=== PATIENT | male | born 1940 | race Caucasian/White ===

== ENCOUNTER 2017-06-17 18:39 | Inpatient (IN) ==
--- NOTE | 2017-06-17 19:10 | Emergency Department Note ---
Disposition Clinical Impression: Bladder stone, UTI (urinary tract infection) Disposition: Admitted As Inpatient Condition: Fair General Adult HPI - General Chief complaint: ED Abdominal Pain Stated complaint: Abd pain Time Seen by Provider: 06/17/17 18:51 Source: patient Limitations: no limitations Nursing Notes Reviewed: Yes Vital Signs Reviewed: Yes - History of Present Illness Pain Scale: 5 - Related Data Home Medications Medication Instructions Recorded Confirmed Aspirin Enteric Coated [Aspirin EC] 81 mg PO DAILY 03/01/15 06/17/17 Meloxicam [Mobic] 7.5 mg PO DAILY 03/01/15 03/01/15 Metoprolol XL (24 HR) Succ [Toprol 12.5 mg PO HS 03/01/15 06/17/17 Xl] Propafenone HCl [Propafenone HCl 225 mg PO BID 03/01/15 06/17/17 ER] Tamsulosin HCl 0.4 mg PO DAILY 03/01/15 03/01/15 Previous Rx's Medication Instructions Recorded Lisinopril [Zestril] 20 mg PO DAILY #30 tablet 01/17/15 Docusate [Colace] 100 mg PO BID #60 capsule 03/02/15 HYDROcodone/Acet 5/325 mg [[place] 1 tab PO Q4H PRN #20 tablet 03/02/15 5-325 mg] Allergies Allergy/AdvReac Type Severity Reaction Status Date / Time Latex, Natural Rubber Allergy Hives Verified 01/17/15 00:20 Past Medical History - Past Medical History Medical history: Reports: COPD, GERD, hypertension, other Surgical history: Reports: other Psychiatric history: Reports: no psych history - Social History Smoking Status: Never smoker Smokeless Tobacco Status: No Alcohol use: Reports: none Drug use: Reports: none Physical Exam - General Limitations: no limitations General appearance: alert Course - Reevaluation(s) Reevaluation #1: I examined this patient and my medical decision-making was reviewed with Dr. Malhotra. I agree with the documented findings, disposition and treatment plan. This is a 76 year-old male with history of HTN, COPD, and BPH who presents with suprapubic discomfort. He says he's had bladder discomfort since February, when he was diagnosed with a UTI that did not respond to several rounds of antibiotics. He underwent cystoscopy [address] Chaidez 2 days ago and was diagnosed with a 2x3 cm bladder stone. Lithotripsy is planned for later this month. Patient presents to the ED with worsening bladder pain and subjective fever. He denies any associated nausea, vomiting, visible change in urine, or inability to urinate. On exam, patient has a very slight temperature elevation. Abdomen is benign. The main concern, in addition to the pain itself, is cystitis and the potential for a more serious systemic infection. We will check UA, CBC, and CMP and will discuss the case with the urologist food production manager. Time: 19:05 Vital Signs Temperature 99.5 F 06/17/17 18:40 Pulse Rate 82 06/17/17 18:40 Respiratory Rate 18 06/17/17 18:40 Blood Pressure 135/79 06/17/17 18:40 O2 Sat by Pulse Oximetry 96 06/17/17 18:40 Temperature 98.7 F 06/17/17 22:31 Pulse Rate 81 06/17/17 22:31 Respiratory Rate 15 06/17/17 22:31 Blood Pressure 146/80 06/17/17 22:31 O2 Sat by Pulse Oximetry 97 06/17/17 23:01 Oxygen Delivery Oxygen Delivery Nasal Cannula Medical Decision Making - Lab Data Lab results reviewed: Yes I reviewed the patient's lab results. Result diagrams: 06/17/17 19:15 06/17/17 19:15 Lab Results 06/17/17 06/17/17 06/17/17 Range/Units 19:15 19:15 19:43 WBC 15.4 H (4.3-11.1) K/mcL RBC 4.72 (4.19-5.50) M/mcL Hgb 14.1 (12.9-16.9) g/dL Hct 41.9 (37.5-50.1) % MCV 88.8 (83.0-100.0) fL MCH 29.9 (28.0-33.3) pg MCHC 33.7 (31.6-35.5) g/dL RDW 13.6 (11.5-14.5) % Plt Count 120 L (140-400) K/mcL MPV 11.6 (9.4-12.4) fL Immature Gran % 0.5 (0-4) % Seg Neutrophils % 83.8 % Lymphocytes % 6.6 % Monocytes % 8.6 % Eosinophils % 0.3 % Basophils % 0.2 % Neutrophils # 12.9 H (1.6-8.9) K/mcL Lymphocytes # 1.0 (0.6-4.6) K/mcL Monocytes # 1.3 (0.0-1.3) K/mcL Eosinophils # 0.1 (0.0-0.6) K/mcL Basophils # 0.0 (0.0-0.2) K/mcL Sodium 138 (136-145) mEq/L Potassium 3.6 (3.5-5.1) mEq/L Chloride 108 H (98-107) mEq/L Carbon Dioxide 25 (23-29) mEq/L BUN 29 H (8-23) mg/dL Creatinine 1.06 (0.70-1.30) mg/dL Est GFR ( Amer) > 60 (> 60) Est GFR (Non-Af Amer) > 60 (> 60) BUN/Creatinine Ratio 27 H (6-26) Glucose 103 (70-105) mg/dL Calculated Osmolality 292 (280-300) Calcium 9.0 (8.6-10.3) mg/dL Urine Color Yellow (Yellow) Urine Clarity Turbid A (Clear) Urine pH 6.0 (5.0-8.0) pH Units Ur Specific [place] 1.026 H (1.010-1.025) Urine Protein 100 H (Neg-Trace) mg/dL Urine Glucose (UA) Normal (Normal) mg/dL Urine Ketones Trace H (Negative) mg/dL Urine Blood Large H (Negative) Urine Nitrite Positive A (Negative) Urine Bilirubin Negative (Negative) Urine Urobilinogen Normal (Normal) mg/dL Ur Leukocyte Esterase Large H (Negative) Urine Microscopic RBC 50-100 H (0-3) per hpf Urine Microscopic WBC TNTC H (0-3) per hpf Ur Squamous Epith Cells Moderate H (None-Few) per lpf Urine Bacteria Many H (None-Few) per hpf Hyaline Casts Few (None-Few) per lpf Ur Culture Indicated? YES A (NO)
--- NOTE | 2017-06-17 19:11 | Emergency Department Note ---
Disposition Clinical Impression: Bladder stone UTI (urinary tract infection) Qualifiers: Urinary tract infection type: site unspecified Hematuria presence: with hematuria Qualified Code(s): N39.0 - Urinary tract infection, site not specified ; R31.9 - Hematuria, unspecified; R31.9 - Hematuria, unspecified Disposition: Admitted As Inpatient Condition: Fair Referrals: Milton Almodovar MD [Primary Care Provider] - Forms: ED Satisfaction Letter, Work/School Release Time of Disposition: 21:31 General Adult HPI - General Chief complaint: ED Abdominal Pain Stated complaint: Abd pain Time Seen by Provider: 06/17/17 18:51 Source: patient Mode of arrival: ambulatory Limitations: no limitations Nursing Notes Reviewed: Yes Vital Signs Reviewed: Yes - History of Present Illness HPI Narrative: Patient is a 76-year-old male that presents to the emergency department for a known bladder stone. He states that he was told on Sunday by one of the urologists that it measured 2-3 cm. States that he has been trying to take ibuprofen without any relief. States that he is scheduled for possible lithotripsy on July 06. However the patient states that he does not feel that he can wait this long due to having a significant amount of pain. Patient also reports that he felt like he had a fever today. Patient did not check his temperature with a thermometer so is unable to state how high his fever was. Patient states that he has pain when he urinates. Patient denies any abdominal pain. States that nothing seems to really make his pain any better or worse. Pain Scale: 5 - Related Data Home Medications Medication Instructions Recorded Confirmed Aspirin Enteric Coated [Aspirin EC] 81 mg PO DAILY 03/01/15 03/01/15 Meloxicam [Mobic] 7.5 mg PO DAILY 03/01/15 03/01/15 Metoprolol XL (24 HR) Succ [Toprol 25 mg PO HS 03/01/15 03/01/15 Xl] Propafenone HCl [Propafenone HCl 225 mg PO BID 03/01/15 03/01/15 ER] Tamsulosin HCl 0.4 mg PO DAILY 03/01/15 03/01/15 Previous Rx's Medication Instructions Recorded Lisinopril [Zestril] 20 mg PO DAILY #30 tablet 01/17/15 Docusate [Colace] 100 mg PO BID #60 capsule 03/02/15 HYDROcodone/Acet 5/325 mg [[place] 1 tab PO Q4H PRN #20 tablet 03/02/15 5-325 mg] Allergies Allergy/AdvReac Type Severity Reaction Status Date / Time Latex, Natural Rubber Allergy Hives Verified 01/17/15 00:20 All systems ED: reviewed and negative except as stated. Constitutional: Reports: fever Cardiovascular: Denies: chest pain Respiratory: Denies: dyspnea Gastrointestinal: Denies: abdominal pain, nausea, vomiting Genitourinary: Reports: dysuria, frequency Past Medical History - Past Medical History Medical history: Reports: COPD, GERD, hypertension, other Surgical history: Reports: other Psychiatric history: Reports: no psych history - Social History Smoking Status: Never smoker Smokeless Tobacco Status: No Alcohol use: Reports: none Drug use: Reports: none Physical Exam - General Limitations: no limitations General appearance: alert, in no apparent distress - Head Head exam: atraumatic, normocephalic - Eye Eye exam: Present: normal appearance, EOMI - Neck Neck exam: Present: normal inspection, full ROM, trachea midline - Respiratory Respiratory exam: Present: normal lung sounds bilaterally. Absent: respiratory distress, wheezes - Cardiovascular Cardiovascular exam: Present: regular rate, normal rhythm, normal heart sounds, +S1, +S2 - Abdominal Exam Abdominal exam: Present: soft, Non-Tender, normal bowel sounds - Back Exam Back exam: Present: normal inspection, full ROM. Absent: tenderness - Neurological Exam Neurological exam: Present: alert, oriented X3 - Psychiatric Psychiatric exam: Present: normal affect, normal mood - Skin Skin exam: Present: warm, dry, intact Course - Reevaluation(s) Reevaluation #1: I called and spoke with Dr. Logan the on-call urologist and he did not feel that there is anything urgent that needed to be done at this time but was in agreement with the patient being admitted to the medicine service with a urology consult. We will start this patient on antibiotics. He was in agreement that there is no further imaging that was necessary at this time. Time: 20:16 Vital Signs Temperature 99.5 F 06/17/17 18:40 Pulse Rate 82 06/17/17 18:40 Respiratory Rate 18 06/17/17 18:40 Blood Pressure 135/79 06/17/17 18:40 O2 Sat by Pulse Oximetry 96 06/17/17 18:40 Temperature 99.0 F 06/17/17 20:08 Pulse Rate 82 06/17/17 20:08 Respiratory Rate 20 06/17/17 20:08 Blood Pressure 126/70 06/17/17 20:08 O2 Sat by Pulse Oximetry 94 06/17/17 20:08 Oxygen Delivery Oxygen Delivery Nasal Cannula Medical Decision Making - MDM Narrative Medical decision making narrative: Due to the patient presenting with a known bladder stone and having significant pain and potential fever we will obtain a CBC, BMP and a urinalysis. Once these laboratory tests and been obtained we will contact urology for further recommendations. The patient is still able to pass small amounts of urine. The patient did request a Jackson catheter for convenience and not having to get up to go to the bathroom. A Jackson catheter was attempted however we were not able to obtain any urine through the catheter. A bedside bladder scan was performed and the patient had 280 mL of urine in his bladder at this time. I explained to the patient that sometimes when we a urinary tract infection is present thoroughly the sensation that they have to urinate. He was understanding of this and we will not attempt placing another Jackson catheter due to the patient still being able to pass small amounts of urine. The patient did have an elevated white count of 15.4 the patient's urinalysis showed nitrites, leukocyte esterase, blood and bacteria. We will start the patient on Rocephin here in the emergency department the patient will be admitted to the hospital. I called and spoke with the admitting hospitalist and she has accepted the patient to their service. The patient be admitted to the hospital this time for further evaluation and management. - Medical Records Medical records reviewed: Yes I reviewed the patient's medical records. - Lab Data Lab results reviewed: Yes I reviewed the patient's lab results. Result diagrams: 06/17/17 19:15 06/17/17 19:15 Lab Results 06/17/17 06/17/17 06/17/17 Range/Units 19:15 19:15 19:43 WBC 15.4 H (4.3-11.1) K/mcL RBC 4.72 (4.19-5.50) M/mcL Hgb 14.1 (12.9-16.9) g/dL Hct 41.9 (37.5-50.1) % MCV 88.8 (83.0-100.0) fL MCH 29.9 (28.0-33.3) pg MCHC 33.7 (31.6-35.5) g/dL RDW 13.6 (11.5-14.5) % Plt Count 120 L (140-400) K/mcL MPV 11.6 (9.4-12.4) fL Immature Gran % 0.5 (0-4) % Seg Neutrophils % 83.8 % Lymphocytes % 6.6 % Monocytes % 8.6 % Eosinophils % 0.3 % Basophils % 0.2 % Neutrophils # 12.9 H (1.6-8.9) K/mcL Lymphocytes # 1.0 (0.6-4.6) K/mcL Monocytes # 1.3 (0.0-1.3) K/mcL Eosinophils # 0.1 (0.0-0.6) K/mcL Basophils # 0.0 (0.0-0.2) K/mcL Sodium 138 (136-145) mEq/L Potassium 3.6 (3.5-5.1) mEq/L Chloride 108 H (98-107) mEq/L Carbon Dioxide 25 (23-29) mEq/L BUN 29 H (8-23) mg/dL Creatinine 1.06 (0.70-1.30) mg/dL Est GFR ( Amer) > 60 (> 60) Est GFR (Non-Af Amer) > 60 (> 60) BUN/Creatinine Ratio 27 H (6-26) Glucose 103 (70-105) mg/dL Calculated Osmolality 292 (280-300) Calcium 9.0 (8.6-10.3) mg/dL Urine Color Yellow (Yellow) Urine Clarity Turbid A (Clear) Urine pH 6.0 (5.0-8.0) pH Units Ur Specific [place] 1.026 H (1.010-1.025) Urine Protein 100 H (Neg-Trace) mg/dL Urine Glucose (UA) Normal (Normal) mg/dL Urine Ketones Trace H (Negative) mg/dL Urine Blood Large H (Negative) Urine Nitrite Positive A (Negative) Urine Bilirubin Negative (Negative) Urine Urobilinogen Normal (Normal) mg/dL Ur Leukocyte Esterase Large H (Negative) Urine Microscopic RBC 50-100 H (0-3) per hpf Urine Microscopic WBC TNTC H (0-3) per hpf Ur Squamous Epith Cells Moderate H (None-Few) per lpf Urine Bacteria Many H (None-Few) per hpf Hyaline Casts Few (None-Few) per lpf Ur Culture Indicated? YES A (NO)
[2017-06-17 19:25] LABS: Basophils % 0.2 %; Eosinophils # 0.1 K/mcL (0.0-0.6); Eosinophils % 0.3 %; Hematocrit 41.9 % (37.5-50.1); Hemoglobin 14.1 g/dL (12.9-16.9); Immature Granulocytes % 0.5 % (0-4); Lymphocytes % 6.6 %; Mean Corpuscular HGB Conc 33.7 g/dL (31.6-35.5); Mean Corpuscular Hemoglobin 29.9 pg (28.0-33.3); Mean Corpuscular Volume 88.8 fL (83.0-100.0); Mean Platelet Volume 11.6 fL (9.4-12.4); Monocytes # 1.3 K/mcL (0.0-1.3); Monocytes % 8.6 %; Neutrophils # 12.9 K/mcL (1.6-8.9); Platelet Count 120 K/mcL (140-400); Red Blood Count 4.72 M/mcL (4.19-5.50); Red Cell Distribution Width 13.6 % (11.5-14.5); Segmented Neutrophils % 83.8 %
[2017-06-17 19:49] LABS: BUN/Creatinine Ratio 27 (6-26); Blood Urea Nitrogen 29 mg/dL (8-23); Carbon Dioxide 25 mEq/L (23-29); Chloride 108 mEq/L (98-107); Glucose 103 mg/dL (70-105); Osmolality,Calculated 292 (280-300); Potassium 3.6 mEq/L (3.5-5.1); Sodium 138 mEq/L (136-145); eGFR For African Americans > 60 (> 60); eGFR For Non-African Americans > 60 (> 60)
[2017-06-17 19:58] LABS: Bilirubin,Urine Negative (Negative); Blood,Urine Large (Negative); Clarity,Urine Turbid (Clear); Color,Urine Yellow (Yellow); Glucose,Urine (UA) Normal (Normal); Ketones,Urine Trace mg/dL (Negative); Leukocyte Esterase,Urine Large (Negative); Nitrite,Urine Positive (Negative); Protein,Urine 100 mg/dL (Neg-Trace); Specific Gravity,Urine 1.026 (1.010-1.025); Urobilinogen,Urine Normal (Normal)
[2017-06-17 20:01] LABS: Bacteria,Urine Many per hpf (None-Few); Hyaline Casts,Urine Few per lpf (None-Few); RBC,Urine 50-100 per hpf (0-3); Squamous Epithelial Cell,Urine Moderate per lpf (None-Few); WBC,Urine TNTC per hpf (0-3)
[2017-06-17] MEDS ORDERED: cefTRIAXone 2,000 MG in Water for inj. (sterile) 20 ML 20 ML IVP ONE (20:16)
[2017-06-17] MEDS: Acetaminophen 325 MG TABLET PO PRN (23:19)
[2017-06-17] MEDS ORDERED: *HR* OxyCODONE Immed Rel 5 MG TABLET PO PRN (23:37)
[2017-06-17] MEDS ORDERED: Naloxone 0.4 MG/ML INJ IVP PRN (23:37)
--- NOTE | 2017-06-17 23:40 | Internal Med History&Physical ---
Date of Encounter: 06/17/17 Time of Encounter: 23:40 Internal Medicine - H&P: HPI Chief complaint: Pain on micturition Admitted From: Emergency Dept Plans for Post Hospital Care: Home History of present illness: Mr. Kim is a 76 year old male with h/o- recently diagnosed bladder stone, presents with c/o- painful urination. He was seen in Urology office 2 days ago and underwent cystoscopy with bladder stone finding, is scheduled for stone removal later this month. However patient started having significant pain on urination, coursing though his penis, associated with some hematuria, subjective fever and chills. No nausea, vomiting, suprapubic or abdominal pain, shortness of breath. Past Med Surg Social Fam HX - Past Medical History Source: patient Medical history: atrial fibrillation, COPD, GERD, hypertension, other Psychiatric history: no psych history - Past Surgical History Surgical History: prostatectomy, other - Social History Smoking Status: Former smoker Smokeless Tobacco Status: No Alcohol use: none Drug use: none Occupational status: retired Current living situation: Home, With Family Activity Level: Independent ambulation Recent Out of Country Travel Within the Last 8 Weeks: No Exposure or Possible Exposure to Illness During Travel: No - Family History Mother Living Status: Hx Family Cardiac Disorders: Yes Father Living Status: Hx Family Cardiac Disorders: Yes Internal Medicine - H&P: Meds Lisinopril [Zestril] 20 mg PO DAILY #30 tablet 01/17/15 [Rx] Aspirin Enteric Coated [Aspirin EC] 81 mg PO DAILY 03/01/15 [History] Meloxicam [Mobic] 7.5 mg PO DAILY 03/01/15 [History] Metoprolol XL (24 HR) Succ [Toprol Xl] 12.5 mg PO HS 03/01/15 [History] Propafenone HCl [Propafenone HCl ER] 225 mg PO BID 03/01/15 [History] Tamsulosin HCl 0.4 mg PO DAILY 03/01/15 [History] Docusate [Colace] 100 mg PO BID #60 capsule 03/02/15 [Rx] HYDROcodone/Acet 5/325 mg [[place] 5-325 mg] 1 tab PO Q4H PRN #20 tablet 03/02/15 [Rx] 3 Allergy/AdvReac Type Severity Reaction Status Date / Time Latex, Natural Rubber Allergy Hives Verified 12/06/15 00:20 All Systems PM: A 10-system review of systems was performed and is negative for pertinent findings except as documented above in the HPI. - Constitutional Constitutional: chills, fever(s) - EENT Eyes: no change in vision, no discharge, no pain, no photophobia Ears: no ear discharge, no ear pain, no tinnitus Nose, mouth and throat: no dysphagia, no nasal discharge, no neck pain, no sore throat - Cardiovascular Cardiovascular ROS IM: no chest pain, no diaphoresis, no dyspnea, no lightheadedness, no palpitations, no syncope - Respiratory Respiratory: no cough, no dyspnea, no wheezing, no excessive phlegm production - Gastrointestinal Gastrointestinal: no abdominal pain, no diarrhea, no hematemesis, no hematochezia, no melena, no nausea, no vomiting - Genitourinary Genitourinary ROS male: as per HPI, dysuria, genital pain, hematuria - Musculoskeletal Musculoskeletal ROS IM: no numbness, no tingling - Integumentary Integumentary IM: no rash, no unusual bruising - Neurological Neurological ROS: no confusion, no convulsions, no focal weakness, no numbness, no tingling, no tremor(s) - Hematologic/Lymphatic Hematologic/Lymphatic: no easy bruising - Constitutional Vitals: Temp Pulse Resp BP Pulse Ox 98.7 F 81 15 146/80 97 06/17/17 22:31 06/17/17 22:31 06/17/17 22:31 06/17/17 22:31 06/17/17 23:01 General appearance: Present: A&O X 3, answers questions appropriately - Respiratory Respiratory exam: Present: CTAB. Absent: accessory muscle use, rales, rhonchi, wheezes - Cardiovascular Cardiovascular exam: Present: RRR, +S1, +S2. Absent: diastolic murmur, gallop, rubs, systolic murmur - GI/Abdominal GI/Abdominal exam: Present: normal bowel sounds, soft, no peritoneal signs. Absent: distended, tenderness - Extremities Exam Extremities exam: Present: full ROM, warm, radial pulses palpable and symmetrical. Absent: calf tenderness, cyanotic, pedal edema - Neurological Exam Neurological exam: Present: CN II-XII intact, oriented X3, no focal deficits. Absent: pronater drift, facial droop, speech deficit - Skin Skin exam: Present: dry, intact Internal Med - H&P Results - Labs CBC & Chem 7: 06/17/17 19:15 06/17/17 19:15 - Assessment and plan (1) Bladder stone Current Visit: Yes Status: Acute Assessment and plan: Urology was consulted by ER, no further imaging at this time; full consult to follow; pain control with PRN TYlenol and Oxycodone; monitor urine output; Jackson catheterization was attempted in the ER, unsuccessful. (2) UTI (urinary tract infection) Current Visit: Yes Status: Acute Assessment and plan: UA suggestive of UTI; continue IV Rocephin and f/up urine cultures; Qualifiers: Urinary tract infection type: site unspecified Hematuria presence: with hematuria Qualified Code(s): N39.0 - Urinary tract infection, site not specified; R31.9 - Hematuria, unspecified; R31.9 - Hematuria, unspecified (3) COPD (chronic obstructive pulmonary disease) Current Visit: Yes Status: Chronic Assessment and plan: not in acute exacerbation; PRN Albuterol nebs; Qualifiers: COPD type: unspecified COPD Qualified Code(s): J44.9 - Chronic obstructive pulmonary disease, unspecified (4) Atrial fibrillation Current Visit: Yes Status: Chronic Assessment and plan: continue Rhythmol, beta inga and ASA for anticoagulation; he was taken off full anticoagulation by his Annual Campaign Manager; Qualifiers: Atrial fibrillation type: paroxysmal Qualified Code(s): I48.0 - Paroxysmal atrial fibrillation - Time Spent With Patient Total time spent is greater than 50% in coordination of care (as documented) at patient's floor/unit and/or counseling patient:
[2017-06-17] MEDS: Ringers Solution, Lactated 1,000 ML IVC SCH (23:50)
[2017-06-18 05:09] LABS: Basophils % 0.2 %; Eosinophils % 0.2 %; Hematocrit 41.6 % (37.5-50.1); Hemoglobin 13.7 g/dL (12.9-16.9); Immature Granulocytes % 0.7 % (0-4); Lymphocytes # 0.8 K/mcL (0.6-4.6); Lymphocytes % 6.1 %; Mean Corpuscular HGB Conc 32.9 g/dL (31.6-35.5); Mean Corpuscular Hemoglobin 29.5 pg (28.0-33.3); Mean Corpuscular Volume 89.7 fL (83.0-100.0); Monocytes # 1.3 K/mcL (0.0-1.3); Monocytes % 9.3 %; Neutrophils # 11.3 K/mcL (1.6-8.9); Platelet Count 113 K/mcL (140-400); Red Blood Count 4.64 M/mcL (4.19-5.50); Red Cell Distribution Width 13.7 % (11.5-14.5); Segmented Neutrophils % 83.5 %
[2017-06-18 05:21] LABS: BUN/Creatinine Ratio 27 (6-26); Blood Urea Nitrogen 28 mg/dL (8-23); Calcium 8.9 mg/dL (8.6-10.3); Carbon Dioxide 28 mEq/L (23-29); Chloride 107 mEq/L (98-107); Glucose 113 mg/dL (70-105); Osmolality,Calculated 294 (280-300); Potassium 3.8 mEq/L (3.5-5.1); Sodium 139 mEq/L (136-145); eGFR For African Americans > 60 (> 60); eGFR For Non-African Americans > 60 (> 60)
--- NOTE | 2017-06-18 06:59 | Urology - Consult Note ---
Date of Encounter: 06/18/17 Time of Encounter: 06:56 - Assessment and Plan (1) Bladder stone Current Visit: Yes Status: Acute Assessment and plan: Patient's bladder stone will ultimately require removal. No emergent need for removal at this time. We will discuss patient's care with Dr. Chaidez. Continue broad-spectrum antibiotics at this time. Patient states that he had bladder scan performed in the emergency department with a volume of 200 mL's. A catheter was attempted to be placed which was unsuccessful. No urgent need for catheter placement. (2) UTI (urinary tract infection) Current Visit: Yes Status: Acute Assessment and plan: Patient with nitrite positive urinalysis upon arrival to the hospital. Recommend to continue broad-spectrum antibiotics until cultures return. Patient will likely need to remain on antibiotics until surgical procedure is performed. This does not have to be IV antibiotics if cultures return a by mouth sensitive antibiotic. Qualifiers: Urinary tract infection type: site unspecified Hematuria presence: with hematuria Qualified Code(s): N39.0 - Urinary tract infection, site not specified; R31.9 - Hematuria, unspecified; R31.9 - Hematuria, unspecified (3) Feeling of incomplete bladder emptying Current Visit: Yes Status: Acute Assessment and plan: Patient had bladder scan emergency department which did not show obvious retention. Given that the patient's symptoms have only worsened in the past 2 or 3 days I do not recommend a catheter at this time. We will reassess later today or tomorrow for possible catheter need. I voiced to the patient that my expectation is that his voiding symptoms will improve with the antibiotic treatment. Urology CN:[facility] Consult date: 06/18/17 Reason for consult Urology: Other (acute cystitis with bladder stone) Requesting physician: Carie Palacios History of present illness: Nishant is a 76-year-old male with a history of known bladder stone per urology. Patient is scheduled with Dr. Chaidez later in the month for removal. Patient states that over the past 3 days he has had worsening problems with nocturia and urinary frequency. He has been unable to sleep for the past 2 nights. He does have some dysuria. Positive pain with voiding pain is 2-3 out of 10 sharp burning in nature with no radiation. Patient denies any flank pain. He came to the emergency department last night secondary to fever at home. Patient did have low-grade fever in the emergency department. He is found of a nitrite positive urinalysis with an elevated white count. Patient was admitted for IV fluids and IV antibiotics. Cultures currently pending. Past Med Surg Social Fam HX - Past Medical History Medical history: atrial fibrillation, COPD, GERD, hypertension, other Psychiatric history: no psych history - Past Surgical History Surgical History: prostatectomy, other - Social History Smoking Status: Former smoker Smokeless Tobacco Status: No Alcohol use: none Drug use: none - Family History Mother Living Status: Hx Family Cardiac Disorders: Yes Father Living Status: Hx Family Cardiac Disorders: Yes Medications and Allergies Lisinopril [Zestril] 20 mg PO DAILY #30 tablet 01/17/15 [Rx] Aspirin Enteric Coated [Aspirin EC] 81 mg PO DAILY 03/01/15 [History] Meloxicam [Mobic] 7.5 mg PO DAILY 03/01/15 [History] Metoprolol XL (24 HR) Succ [Toprol Xl] 12.5 mg PO HS 03/01/15 [History] Propafenone HCl [Propafenone HCl ER] 225 mg PO BID 03/01/15 [History] Tamsulosin HCl 0.4 mg PO DAILY 03/01/15 [History] Docusate [Colace] 100 mg PO BID #60 capsule 03/02/15 [Rx] HYDROcodone/Acet 5/325 mg [[place] 5-325 mg] 1 tab PO Q4H PRN #20 tablet 03/02/15 [Rx] 3 Allergy/AdvReac Type Severity Reaction Status Date / Time Latex, Natural Rubber Allergy Hives Verified 01/17/15 00:20 Review of Systems - Constitutional fever(s), no chills - EENT Nose, mouth and throat: no dizziness, no headache(s), no sore throat, no throat swelling - Cardiovascular no chest pain - Respiratory no cough, no dyspnea - Gastrointestinal no abdominal pain, no nausea, no vomiting - Genitourinary as per HPI - Musculoskeletal no back pain - Integumentary no erythema, no swelling - Neurological no confusion, no weakness - Psychiatric no anxiety, no confusion - Hematologic/Lymphatic no easy bleeding, no easy bruising, no lymphadenopathy - Allergic/Immunologic no wheezing Exam Initial Vital Signs Temp Pulse Resp BP Pulse Ox 99.5 F 82 18 135/79 96 06/17/17 18:40 06/17/17 18:40 06/17/17 18:40 06/17/17 18:40 06/17/17 18:40 General/Neuological: alert and oriented x 3 Eyes: normal pupils, non-icteric Neck: no lymphadenopathy noted, supple to touch Cardiovascular: RRR, no murmurs Respiratory: normal respiratory effort, clear bilaterally ABD: soft, nontender, no masses palpated, good bowel sounds, unable to palpate bladder Back: no pain on percussion bilaterally : normal phallus, normal scrotum, testicles and epididymides normal, urethral meatus normal. Skin: no rashes noted Musculoskeletal: normal gait, FROMx4 - General physical appearance Present: well nourished Urology Results - Labs 06/18/17 04:34 06/18/17 04:34 Abnormal lab results WBC 13.6 K/mcL (4.3-11.1) H 06/18/17 04:34 Plt Count 113 K/mcL (140-400) L 06/18/17 04:34 Neutrophils # 11.3 K/mcL (1.6-8.9) H 06/18/17 04:34 BUN 28 mg/dL (8-23) H 06/18/17 04:34 BUN/Creatinine Ratio 27 (6-26) H 06/18/17 04:34 Glucose 113 mg/dL (70-105) H 06/18/17 04:34 Urine Clarity Turbid (Clear) A 06/17/17 19:43 Ur Specific [place] 1.026 (1.010-1.025) H 06/17/17 19:43 Urine Protein 100 mg/dL (Neg-Trace) H 06/17/17 19:43 Urine Ketones Trace mg/dL (Negative) H 06/17/17 19:43 Urine Blood Large (Negative) H 06/17/17 19:43 Urine Nitrite Positive (Negative) A 06/17/17 19:43 Ur Leukocyte Esterase Large (Negative) H 06/17/17 19:43 Urine Microscopic RBC 50-100 per hpf (0-3) H 06/17/17 19:43 Urine Microscopic WBC TNTC per hpf (0-3) H 06/17/17 19:43 Ur Squamous Epith Cells Moderate per lpf (None-Few) H 06/17/17 19:43 Urine Bacteria Many per hpf (None-Few) H 06/17/17 19:43 Ur Culture Indicated? YES (NO) A 06/17/17 19:43 Diabetes panel 06/18/17 Range/Units 04:34 Sodium 139 (136-145) mEq/L Potassium 3.8 (3.5-5.1) mEq/L Chloride 107 (98-107) mEq/L Carbon Dioxide 28 (23-29) mEq/L BUN 28 H (8-23) mg/dL Creatinine 1.03 (0.70-1.30) mg/dL Glucose 113 H (70-105) mg/dL Calcium 8.9 (8.6-10.3) mg/dL Calcium panel 06/18/17 Range/Units 04:34 Calcium 8.9 (8.6-10.3) mg/dL Pituitary panel 06/18/17 Range/Units 04:34 Sodium 139 (136-145) mEq/L Potassium 3.8 (3.5-5.1) mEq/L Chloride 107 (98-107) mEq/L Carbon Dioxide 28 (23-29) mEq/L BUN 28 H (8-23) mg/dL Creatinine 1.03 (0.70-1.30) mg/dL Glucose 113 H (70-105) mg/dL Calcium 8.9 (8.6-10.3) mg/dL Adrenal panel 06/18/17 Range/Units 04:34 Sodium 139 (136-145) mEq/L Potassium 3.8 (3.5-5.1) mEq/L Chloride 107 (98-107) mEq/L Carbon Dioxide 28 (23-29) mEq/L BUN 28 H (8-23) mg/dL Creatinine 1.03 (0.70-1.30) mg/dL Glucose 113 H (70-105) mg/dL Calcium 8.9 (8.6-10.3) mg/dL All other labs normal. Consult Discharge Plan - Plan Referrals: Milton Almodovar MD [Primary Care Provider] -
[2017-06-18] MEDS: cefTRIAXone 2,000 MG in Water for inj. (sterile) 20 ML 20 ML IVPB SCH (10:16)
[2017-06-18] MEDS: Aspirin Enteric Coated 81 MG Tablet PO SCH (10:16)
[2017-06-18] MEDS: Metoprolol XL (24 HR) Succ 25 MG TAB.ER.24H PO SCH (10:50)
--- NOTE | 2017-06-18 11:42 | Internal Med Progress Note ---
Date of Encounter: 06/18/17 Time of Encounter: 11:42 - Assessment and plan (1) UTI (urinary tract infection) Current Visit: Yes Status: Acute Assessment and plan: Currently on IV Rocephin. Having frequency and dysuria. Qualifiers: Urinary tract infection type: acute cystitis Hematuria presence: with hematuria Qualified Code(s): N30.01 - Acute cystitis with hematuria (2) Bladder stone Current Visit: Yes Status: Acute Assessment and plan: Plan is for surgery on Sunday after receiving period of IV abx. (3) COPD (chronic obstructive pulmonary disease) Current Visit: Yes Status: Chronic Assessment and plan: not in acute exacerbation; PRN Albuterol nebs; Qualifiers: COPD type: unspecified COPD Qualified Code(s): J44.9 - Chronic obstructive pulmonary disease, unspecified (4) Atrial fibrillation Current Visit: Yes Status: Chronic Assessment and plan: continue Rhythmol, beta inga and ASA for anticoagulation; he was taken off full anticoagulation by his Pharmacy Specialist; Qualifiers: Atrial fibrillation type: paroxysmal Qualified Code(s): I48.0 - Paroxysmal atrial fibrillation - Time Spent With Patient Total time spent is greater than 50% in coordination of care (as documented) at patient's floor/unit and/or counseling patient: - Subjective Interval history: Mr Kim is currently in observation for UTI and bladder stone. He remains moderate to high risk. Mr Kim is having dysuria and frequency. No fever this morning. Tolerating IV abx. No CP or SOB. No GI issues. - Constitutional Vitals: Temp Pulse Resp BP Pulse Ox 98.4 F 88 16 150/82 96 06/18/17 07:20 06/18/17 07:20 06/18/17 07:20 06/18/17 07:20 06/18/17 07:20 General appearance: Present: A&O X 3, answers questions appropriately - Head Head exam: Present: normocephalic - Eye Eye exam: Present: conjuntiva pink - ENT ENT exam: Present: mucous membranes dry - Respiratory Respiratory exam: Present: CTAB. Absent: rales, rhonchi, wheezes - Cardiovascular Cardiovascular exam: Present: RRR. Absent: tachycardia - GI/Abdominal GI/Abdominal exam: Present: soft. Absent: tenderness - Extremities Exam Extremities exam: Present: warm. Absent: tenderness - Neurological Exam Neurological exam: Present: alert, oriented X3 - Skin Skin exam: Present: dry, warm Internal Medicine: Result - Labs CBC & Chem 7: 06/18/17 04:34 06/18/17 04:34 Labs: Short CBC 06/18/17 Range/Units 04:34 WBC 13.6 H (4.3-11.1) K/mcL Hgb 13.7 (12.9-16.9) g/dL Hct 41.6 (37.5-50.1) % Plt Count 113 L (140-400) K/mcL Neutrophils # 11.3 H (1.6-8.9) K/mcL BMP 06/18/17 04:34 Sodium 139 Potassium 3.8 Chloride 107 Carbon Dioxide 28 BUN 28 H Creatinine 1.03 Glucose 113 H Calcium 8.9 Consult Discharge Plan - Plan Referrals: Milton Almodovar MD [Primary Care Provider] -
[2017-06-18] MEDS: Ringers Solution, Lactated 1,000 ML IVC SCH (13:08)
--- NOTE | 2017-06-18 16:02 | Event Note ---
Date of Encounter: 06/18/17 Time of Encounter: 16:00 I met with Mr. Kim today. He has a uti and bladder stone. He is having difficulty voiding. I placed an 18 Bulgarian coude catheter under sterile conditions. Clear urine returned. He tolerated the procedure well. Dx: bladder stone, urinary retention.
[2017-06-18] MEDS: Acetaminophen 325 MG TABLET PO PRN (16:14)
[2017-06-18] MEDS ORDERED: Metoprolol XL (24 HR) Succ 25 MG TAB.ER.24H PO SCH (21:00)
[2017-06-19 05:58] LABS: Mean Platelet Volume 12.2 fL (9.4-12.4); Red Cell Distribution Width 13.7 % (11.5-14.5)
[2017-06-19 05:59] LABS: Hematocrit 36.4 % (37.5-50.1); Hemoglobin 12.1 g/dL (12.9-16.9); Immature Platelets 11.1 % (1.1-6.1); Mean Corpuscular HGB Conc 33.2 g/dL (31.6-35.5); Mean Corpuscular Volume 90.3 fL (83.0-100.0); Red Blood Count 4.03 M/mcL (4.19-5.50)
[2017-06-19 06:13] LABS: BUN/Creatinine Ratio 23 (6-26); Blood Urea Nitrogen 24 mg/dL (8-23); Calcium 8.5 mg/dL (8.6-10.3); Carbon Dioxide 29 mEq/L (23-29); Chloride 107 mEq/L (98-107); Glucose 115 mg/dL (70-105); Magnesium 2.1 mg/dL (1.6-2.6); Osmolality,Calculated 295 (280-300); Potassium 3.7 mEq/L (3.5-5.1); Sodium 140 mEq/L (136-145); eGFR For African Americans > 60 (> 60); eGFR For Non-African Americans > 60 (> 60)
[2017-06-19] MEDS: cefTRIAXone 2,000 MG in Water for inj. (sterile) 20 ML 20 ML IVPB SCH (09:19)
[2017-06-19] MEDS: Aspirin Enteric Coated 81 MG Tablet PO SCH (09:19)
[2017-06-19] MEDS: Metoprolol XL (24 HR) Succ 25 MG TAB.ER.24H PO SCH (09:20)
--- NOTE | 2017-06-19 13:19 | Internal Med Progress Note ---
Date of Encounter: 06/19/17 Time of Encounter: 13:17 - Assessment and plan (1) Bladder stone Current Visit: Yes Status: Acute Assessment and plan: Plan is for surgery on Sunday Urology following. (2) UTI (urinary tract infection) Current Visit: Yes Status: Acute Assessment and plan: SIRS 1 criteria on admission for leukocytosis Currently on IV Rocephin. Jackson cath placed by Urology Planned for surgery tomorrow. Qualifiers: Urinary tract infection type: acute cystitis Hematuria presence: with hematuria Qualified Code(s): N30.01 - Acute cystitis with hematuria (3) COPD (chronic obstructive pulmonary disease) Current Visit: Yes Status: Chronic Assessment and plan: not in acute exacerbation; PRN nebs Qualifiers: COPD type: unspecified COPD Qualified Code(s): J44.9 - Chronic obstructive pulmonary disease, unspecified (4) Atrial fibrillation Current Visit: Yes Status: Chronic Assessment and plan: continue Rhythmol, beta inga and ASA for anticoagulation; he was taken off full anticoagulation by his Planning Intern; Qualifiers: Atrial fibrillation type: paroxysmal Qualified Code(s): I48.0 - Paroxysmal atrial fibrillation - Time Spent With Patient Total time spent is greater than 50% in coordination of care (as documented) at patient's floor/unit and/or counseling patient: - Subjective Interval history: No acute events, no complaints. Last time he felt subjective fevers was 5/7 at approx 15:00 - was documented 100.1 F, otherwise no fevers/chills - Constitutional Vitals: Temp Pulse Resp BP Pulse Ox 98.2 F 61 15 117/71 96 06/19/17 11:10 06/19/17 11:10 06/19/17 11:10 06/19/17 11:10 06/19/17 11:10 General appearance: Present: A&O X 3, answers questions appropriately - Head Head exam: Present: atraumatic, normocephalic - Eye Eye exam: Present: PERRL, conjuntiva pink, sclera anicteric Pupils: Present: PERRL - Neck Neck exam general surgery: Present: supple, trachea midline. Absent: lymphadenopathy - Respiratory Respiratory exam: Present: CTAB. Absent: accessory muscle use, rales, rhonchi, wheezes - Cardiovascular Cardiovascular exam: Present: irregular rhythm, +S1, +S2. Absent: diastolic murmur, gallop, rubs, systolic murmur - GI/Abdominal GI/Abdominal exam: Present: normal bowel sounds, soft, no peritoneal signs. Absent: distended, tenderness - Extremities Exam Extremities exam: Present: warm, radial pulses palpable and symmetrical. Absent : calf tenderness, cyanotic, pedal edema - Neurological Exam Neurological exam: Present: CN II-XII intact, oriented X3, no focal deficits. Absent: pronater drift, facial droop, speech deficit - Skin Skin exam: Present: dry, intact Internal Medicine: Result - Labs CBC & Chem 7: 06/19/17 04:57 06/19/17 04:57 Labs: Short CBC 06/19/17 Range/Units 04:57 WBC 9.7 (4.3-11.1) K/mcL Hgb 12.1 L D (12.9-16.9) g/dL Hct 36.4 L (37.5-50.1) % Plt Count 93 L (140-400) K/mcL BMP 06/19/17 04:57 Sodium 140 Potassium 3.7 Chloride 107 Carbon Dioxide 29 BUN 24 H Creatinine 1.03 Glucose 115 H Calcium 8.5 L Consult Discharge Plan - Plan Referrals: Milton Almodovar MD [Primary Care Provider] -
[2017-06-19] MEDS ORDERED: Acetaminophen 325 MG TABLET PO PRN (14:58)
--- NOTE | 2017-06-19 19:33 | Anesthesia Evaluation PreOp ---
Date of Encounter: 06/19/17 Time of Encounter: 21:25 - Past History Planned Operation: Cystolithopaxy Cardiac History: Arrhythmia (H/O A-Fib) Pulmonary History: Former smoker (quit in 1977), COPD ACCOUNTING RECRUITER History: Denies Any Significant HX Other Medical History: Hepatic (hepatitis C), GERD Anesthesia History: No Prior Anesthetic Complications, Past Anesthesia Alcohol Use: none Drug use: none Medications and Allergies Aspirin Enteric Coated [Aspirin EC] 81 mg PO DAILY 03/01/15 [History] Meloxicam [Mobic] 7.5 mg PO DAILY 03/01/15 [History] Metoprolol XL (24 HR) Succ [Toprol Xl] 12.5 mg PO DAILY 03/01/15 [History] Propafenone HCl [Propafenone HCl ER] 225 mg PO BID 03/01/15 [History] 3 Allergy/AdvReac Type Severity Reaction Status Date / Time Latex, Natural Rubber Allergy Hives Verified 01/17/15 00:20 - Meds/Allergy Pre-op Review Medications Reviewed: Yes Allergies Reviewed: Yes Beta Blockers on Current Med List: Yes If Beta Blockers taken, Date/Time (Last Dose taken): 06/19/2017 at 0920 Anesthesia Results - Labs 06/19/17 04:57 06/19/17 04:57 - Imaging EKG: report reviewed (01/28/2015 SINUS BRADYCARDIA MODERATE INTRAVENTRICULAR CONDUCTION DELAY) Anesthesia Exam O2 Sat Weight 82.8 kg O2 Sat by Pulse Oximetry 94 O2 Sat by Pulse Oximetry 95 O2 Sat by Pulse Oximetry 96 O2 Sat by Pulse Oximetry 95 O2 Sat by Pulse Oximetry 95 O2 Sat by Pulse Oximetry 95 Vital Signs Temp Pulse Resp BP Pulse Ox 99.5 F 82 18 135/79 96 06/17/17 18:40 06/17/17 18:40 06/17/17 18:40 06/17/17 18:40 06/17/17 18:40 Height: 6'/1.83m Weight: 182 lbs/82.8 kg Pain Scale: 0 Pain Scale Used: Numeric (1 - 10) - HEENT Pupil (Motor): EOMI Mallampati: II Teeth: Normal Oral Opening: Greater than 3 - ACCOUNTING RECRUITER LOC: Oriented ACCOUNTING RECRUITER Motor: Normal RUE, Normal LUE, Normal RLE, Normal LLE, Normal Face ACCOUNTING RECRUITER Sensory: Normal: RUE, LUE, RLE, LLE, Face - Cardiac Rhythm: Regular Murmur: None - Pulmonary Breath Sounds: bilateral Clear Respiratory Effort: Symmetrical Anesthesia Assess/Plan ASA Score: 3 Modified Renny Scale for Level of Consciousness: Cooperative, oriented, and tranquil Anesthetic Plan: General Monitoring Plan: Standard Monitors Recovery Plan: PACU
[2017-06-20 05:45] LABS: Basophils % 0.7 %; Eosinophils # 0.1 K/mcL (0.0-0.6); Eosinophils % 1.8 %; Hematocrit 37.5 % (37.5-50.1); Hemoglobin 12.3 g/dL (12.9-16.9); Immature Granulocytes % 0.7 % (0-4); Lymphocytes # 0.9 K/mcL (0.6-4.6); Lymphocytes % 16.8 %; Mean Corpuscular HGB Conc 32.8 g/dL (31.6-35.5); Mean Corpuscular Hemoglobin 29.3 pg (28.0-33.3); Mean Corpuscular Volume 89.3 fL (83.0-100.0); Mean Platelet Volume 11.8 fL (9.4-12.4); Monocytes # 0.7 K/mcL (0.0-1.3); Monocytes % 11.8 %; Neutrophils # 3.8 K/mcL (1.6-8.9); Platelet Count 112 K/mcL (140-400); Red Cell Distribution Width 13.4 % (11.5-14.5); Segmented Neutrophils % 68.2 %
[2017-06-20 05:58] LABS: BUN/Creatinine Ratio 25 (6-26); Blood Urea Nitrogen 23 mg/dL (8-23); Calcium 8.4 mg/dL (8.6-10.3); Carbon Dioxide 27 mEq/L (23-29); Chloride 109 mEq/L (98-107); Glucose 116 mg/dL (70-105); Osmolality,Calculated 299 (280-300); Potassium 3.7 mEq/L (3.5-5.1); Sodium 142 mEq/L (136-145); eGFR For African Americans > 60 (> 60); eGFR For Non-African Americans > 60 (> 60)
--- NOTE | 2017-06-20 08:20 | Urology Progress Note ---
Date of Encounter: 06/20/17 Time of Encounter: 08:15 - Assessment and Plan (1) Bladder stone Current Visit: Yes Status: Acute Assessment and plan: 76-year-old man with a bladder stone. Plan for cystolitholapaxy today. He is aware of all risks. He is willing to proceed. Progress Note Narrative: 76-year-old man with a bladder stone. Plan for cystolitholapaxy today. Urine culture is growing out Escherichia coli which is sensitive to ceftriaxone. He is doing well today. Objective Initial Vital Signs Temp Pulse Resp BP Pulse Ox 99.5 F 82 18 135/79 96 06/17/17 18:40 06/17/17 18:40 06/17/17 18:40 06/17/17 18:40 06/17/17 18:40 - General physical appearance Present: well developed, well nourished, no distress - Respiratory Absent: normal respiratory effort - Abdomen Present: soft - Genitourinary Urine Appearance: Present: Clear - Labs 06/20/17 05:26 06/20/17 05:26 Diabetes panel 06/20/17 Range/Units 05:26 Sodium 142 (136-145) mEq/L Potassium 3.7 (3.5-5.1) mEq/L Chloride 109 H (98-107) mEq/L Carbon Dioxide 27 (23-29) mEq/L BUN 23 (8-23) mg/dL Creatinine 0.93 (0.70-1.30) mg/dL Glucose 116 H (70-105) mg/dL Calcium 8.4 L (8.6-10.3) mg/dL Calcium panel 06/20/17 Range/Units 05:26 Calcium 8.4 L (8.6-10.3) mg/dL Pituitary panel 06/20/17 Range/Units 05:26 Sodium 142 (136-145) mEq/L Potassium 3.7 (3.5-5.1) mEq/L Chloride 109 H (98-107) mEq/L Carbon Dioxide 27 (23-29) mEq/L BUN 23 (8-23) mg/dL Creatinine 0.93 (0.70-1.30) mg/dL Glucose 116 H (70-105) mg/dL Calcium 8.4 L (8.6-10.3) mg/dL Adrenal panel 06/20/17 Range/Units 05:26 Sodium 142 (136-145) mEq/L Potassium 3.7 (3.5-5.1) mEq/L Chloride 109 H (98-107) mEq/L Carbon Dioxide 27 (23-29) mEq/L BUN 23 (8-23) mg/dL Creatinine 0.93 (0.70-1.30) mg/dL Glucose 116 H (70-105) mg/dL Calcium 8.4 L (8.6-10.3) mg/dL Consult Discharge Plan - Plan Referrals: Alhaji Chaidez MD [Partnered Physician] -
[2017-06-20] MEDS: cefTRIAXone 2,000 MG in Water for inj. (sterile) 20 ML 20 ML IVPB SCH (09:25)
[2017-06-20] MEDS: Aspirin Enteric Coated 81 MG Tablet PO SCH (09:26)
[2017-06-20] MEDS: Metoprolol XL (24 HR) Succ 25 MG TAB.ER.24H PO SCH ×2 (09:26→13:47)
--- NOTE | 2017-06-20 12:29 | Internal Med Progress Note ---
Date of Encounter: 06/20/17 Time of Encounter: 12:27 - Assessment and plan (1) Bladder stone Current Visit: Yes Status: Acute Assessment and plan: Urology following. Plan for cystolitholapaxy today. (2) UTI (urinary tract infection) Current Visit: Yes Status: Acute Assessment and plan: SIRS 1 criteria on admission for leukocytosis Currently on IV Rocephin. Improved. Sensitivities returned; resistant to ampicillin. Change to PO antibiotics tomorrow/on DC Qualifiers: Urinary tract infection type: acute cystitis Hematuria presence: with hematuria Qualified Code(s): N30.01 - Acute cystitis with hematuria (3) COPD (chronic obstructive pulmonary disease) Current Visit: Yes Status: Chronic Assessment and plan: not in acute exacerbation; PRN nebs Qualifiers: COPD type: unspecified COPD Qualified Code(s): J44.9 - Chronic obstructive pulmonary disease, unspecified (4) Atrial fibrillation Current Visit: Yes Status: Chronic Assessment and plan: continue Rhythmol, beta inga and ASA for anticoagulation; he was taken off full anticoagulation by his Decorating Instructor; Qualifiers: Atrial fibrillation type: paroxysmal Qualified Code(s): I48.0 - Paroxysmal atrial fibrillation - Time Spent With Patient Total time spent is greater than 50% in coordination of care (as documented) at patient's floor/unit and/or counseling patient: - Subjective Interval history: No acute events, no complaints. Last time he felt subjective fevers was 5/7 at approx 15:00 - was documented 100.1 F, otherwise no fevers/chills 5/9: no acute events, no complaints. - Constitutional Vitals: Temp Pulse Resp BP Pulse Ox 98 F 60 16 125/72 96 06/20/17 11:21 06/20/17 11:21 06/20/17 11:21 06/20/17 11:21 06/20/17 11:21 General appearance: Present: A&O X 3, answers questions appropriately - Head Head exam: Present: atraumatic, normocephalic - Eye Eye exam: Present: PERRL, conjuntiva pink, sclera anicteric Pupils: Present: PERRL - Neck Neck exam general surgery: Present: supple, trachea midline. Absent: lymphadenopathy - Respiratory Respiratory exam: Present: CTAB. Absent: accessory muscle use, rales, rhonchi, wheezes - Cardiovascular Cardiovascular exam: Present: irregular rhythm, +S1, +S2. Absent: diastolic murmur, gallop, rubs, systolic murmur - GI/Abdominal GI/Abdominal exam: Present: normal bowel sounds, soft, no peritoneal signs. Absent: distended, tenderness - Extremities Exam Extremities exam: Present: warm, radial pulses palpable and symmetrical. Absent : calf tenderness, cyanotic, pedal edema - Neurological Exam Neurological exam: Present: CN II-XII intact, oriented X3, no focal deficits. Absent: pronater drift, facial droop, speech deficit - Skin Skin exam: Present: dry, intact Internal Medicine: Result - Labs CBC & Chem 7: 06/20/17 05:26 06/20/17 05:26 Labs: Short CBC 06/20/17 Range/Units 05:26 WBC 5.6 (4.3-11.1) K/mcL Hgb 12.3 L (12.9-16.9) g/dL Hct 37.5 (37.5-50.1) % Plt Count 112 L (140-400) K/mcL Neutrophils # 3.8 (1.6-8.9) K/mcL BMP 06/20/17 05:26 Sodium 142 Potassium 3.7 Chloride 109 H Carbon Dioxide 27 BUN 23 Creatinine 0.93 Glucose 116 H Calcium 8.4 L Consult Discharge Plan - Plan Referrals: Alhjai Chaidez MD [Partnered Physician] -
[2017-06-20] MEDS ORDERED: *HR* OxyCODONE Immed Rel 5 MG TABLET PO PRN ×2 (16:12→18:08)
[2017-06-20] MEDS ORDERED: MORPHINE SUL Oral CONC 10 MG/0.5 ML ORAL.SYG SL PRN (16:12)
[2017-06-20] MEDS ORDERED: Ondansetron 4 MG/2 ML VIAL IVP ONE (16:12)
--- NOTE | 2017-06-20 17:02 | Operative Note ---
Date of procedure: 06/20/17 Pre-op diagnosis: Bladder stone Post-op diagnosis: same Procedure: Cystolitholapaxy, 3 cm stone. Implants: 16-Burmese Jackson catheter Complications: None Anesthesia: GETA Surgeon: Alhaji Chaidez Was there an business assistant present: No Estimated blood loss (cc): 5 Specimen: bladder stone Condition: stable Disposition: PACU Procedure in Detail: Indications: Nishant is a 76-year-old gentleman has a history dysuria and BPH. He previously had a TURP. In workup a cystoscopy showed a bladder stone. He elected to undergo a cystolitholapaxy. He was informed of the risks of the procedure which include but are not limited to bleeding, infection, injury to other structures, recurrence, and the risk of anesthesia. He is willing to proceed. Procedure: After informed consent was obtained the patient was brought back to the operating room and placed in the supine position. A timeout was performed. General anesthesia was administered and an endotracheal tube was placed. He was then placed in the lithotomy position. His genitalia were prepped and draped in the usual sterile fashion. The resecting scope with laser bridge was then introduced. Anterior urethra was unremarkable. The prostate showed a previously resected prostate with some mild lateral lobe regrowth. Upon entering the bladder there was 3+ trabeculations. The ureteral orifices were in the normal orthotopic position. A 3 cm stone was seen at the trigone. The 1000 micron laser fiber was inserted. The stone was broken into small pieces. These fragments were irrigated out. The bladder was then drained. A 16-Burmese Jackson catheter was placed. The patient was awakened from general anesthesia and brought to recovery room in good condition. All sponge, needle, and instrument counts were correct.
[2017-06-20] MEDS ORDERED: Naloxone 0.4 MG/ML INJ IVP PRN (18:08)
[2017-06-20] MEDS ORDERED: Acetaminophen 325 MG TABLET PO PRN (18:08)
--- NOTE | 2017-06-20 18:25 | Anesthesia Evaluation Post Op ---
Date of Encounter: 06/20/17 Time of Encounter: 18:15 - Vital Signs Vital Signs: Vital Signs/O2 Sat/Glucose, Most Current Temp Pulse Resp BP Pulse Ox 06/20/17 17:40 97.2 F L 72 18 154/90 98 06/20/17 17:30 70 16 151/92 98 06/20/17 17:20 68 16 155/86 100 06/20/17 17:10 97.7 F 72 12 150/95 100 - Lungs Lungs: Clear Ascult./Percussion - Airway Airway: Non-obstructed - Cardiovascular Regular Rate - Mental Status Mental Status: Alert & Oriented, Answers Appropriately - Pain Pain Scale: 0 - Nausea Vomiting Nausea Vomiting: Not Present - Hydration Hydration: Ice chips - Discharge PostOp Status: Transfer Patient to floor
[2017-06-21 06:29] LABS: Basophils % 0.4 %; Eosinophils % 0.2 %; Hematocrit 38.9 % (37.5-50.1); Immature Granulocytes % 1.2 % (0-4); Lymphocytes # 0.9 K/mcL (0.6-4.6); Lymphocytes % 10.6 %; Mean Corpuscular HGB Conc 33.4 g/dL (31.6-35.5); Mean Corpuscular Hemoglobin 29.7 pg (28.0-33.3); Mean Corpuscular Volume 88.8 fL (83.0-100.0); Mean Platelet Volume 11.5 fL (9.4-12.4); Monocytes # 0.6 K/mcL (0.0-1.3); Monocytes % 7.6 %; Neutrophils # 6.6 K/mcL (1.6-8.9); Platelet Count 151 K/mcL (140-400); Red Blood Count 4.38 M/mcL (4.19-5.50); Red Cell Distribution Width 13.2 % (11.5-14.5)
[2017-06-21 06:35] LABS: BUN/Creatinine Ratio 23 (6-26); Blood Urea Nitrogen 21 mg/dL (8-23); Calcium 8.4 mg/dL (8.6-10.3); Carbon Dioxide 25 mEq/L (23-29); Chloride 106 mEq/L (98-107); Glucose 108 mg/dL (70-105); Osmolality,Calculated 294 (280-300); Potassium 4.1 mEq/L (3.5-5.1); Sodium 140 mEq/L (136-145); eGFR For African Americans > 60 (> 60); eGFR For Non-African Americans > 60 (> 60)
--- NOTE | 2017-06-21 07:05 | Urology Progress Note ---
Date of Encounter: 06/21/17 Time of Encounter: 07:04 (f) - Assessment and Plan (1) Bladder stone Current Visit: Yes Status: Acute Assessment and plan: Postop day #1 status post cystolitholapaxy. 1. Discontinue Jackson catheter. 2. Transition to oral antibiotic. 3. Anticipate DC home later today. 4. Appreciate hospitalist support. Progress Note Narrative: 76-year-old man status post cystolitholapaxy. Postoperative day #1. Doing well. Urine is clear. Objective Initial Vital Signs Temp Pulse Resp BP Pulse Ox 99.5 F 82 18 135/79 96 06/17/17 18:40 06/17/17 18:40 06/17/17 18:40 06/17/17 18:40 06/17/17 18:40 - General physical appearance Present: well developed, well nourished, no distress - Respiratory Present: normal respiratory effort - Abdomen Present: soft - Genitourinary Urine Appearance: Present: Clear - Labs 06/21/17 05:27 06/21/17 05:27 Diabetes panel 06/21/17 Range/Units 05:27 Sodium 140 (136-145) mEq/L Potassium 4.1 (3.5-5.1) mEq/L Chloride 106 (98-107) mEq/L Carbon Dioxide 25 (23-29) mEq/L BUN 21 (8-23) mg/dL Creatinine 0.93 (0.70-1.30) mg/dL Glucose 108 H (70-105) mg/dL Calcium 8.4 L (8.6-10.3) mg/dL Calcium panel 06/21/17 Range/Units 05:27 Calcium 8.4 L (8.6-10.3) mg/dL Pituitary panel 06/21/17 Range/Units 05:27 Sodium 140 (136-145) mEq/L Potassium 4.1 (3.5-5.1) mEq/L Chloride 106 (98-107) mEq/L Carbon Dioxide 25 (23-29) mEq/L BUN 21 (8-23) mg/dL Creatinine 0.93 (0.70-1.30) mg/dL Glucose 108 H (70-105) mg/dL Calcium 8.4 L (8.6-10.3) mg/dL Adrenal panel 06/21/17 Range/Units 05:27 Sodium 140 (136-145) mEq/L Potassium 4.1 (3.5-5.1) mEq/L Chloride 106 (98-107) mEq/L Carbon Dioxide 25 (23-29) mEq/L BUN 21 (8-23) mg/dL Creatinine 0.93 (0.70-1.30) mg/dL Glucose 108 H (70-105) mg/dL Calcium 8.4 L (8.6-10.3) mg/dL Consult Discharge Plan - Plan Referrals: Alhaji Chaidez MD [Partnered Physician] -
[2017-06-21] MEDS ORDERED: cefTRIAXone 2,000 MG in Water for inj. (sterile) 20 ML 20 ML IVPB SCH (09:00)
[2017-06-21] MEDS ORDERED: Aspirin Enteric Coated 81 MG Tablet PO SCH (09:00)
[2017-06-21] MEDS ORDERED: Metoprolol XL (24 HR) Succ 25 MG TAB.ER.24H PO SCH (09:00)
[2017-06-21 11:12] VITALS: BP 125/80
--- NOTE | 2017-06-21 12:02 | Discharge Summary ---
Orders not resulted at time of discharge: Pending orders 06/22/17 04:00 BMP [Basic Metabolic Panel] AM 0400 Complete Blood Count [HEME] AM 0400 Date of Encounter: 06/21/17 Time of Encounter: 11:59 - Discharge Diagnosis (1) Bladder stone Priority: Primary Status: Acute (2) UTI (urinary tract infection) Priority: Primary Status: Acute Qualifiers: Urinary tract infection type: acute cystitis Hematuria presence: with hematuria Qualified Code(s): N30.01 - Acute cystitis with hematuria (3) COPD (chronic obstructive pulmonary disease) Priority: Secondary Status: Chronic Qualifiers: COPD type: unspecified COPD Qualified Code(s): J44.9 - Chronic obstructive pulmonary disease, unspecified (4) Atrial fibrillation Priority: Secondary Status: Chronic Qualifiers: Atrial fibrillation type: paroxysmal Qualified Code(s): I48.0 - Paroxysmal atrial fibrillation Hospital course: Mr. Kim is a 76 year old male with h/o- recently diagnosed bladder stone, presents with c/o- painful urination. He was seen in Urology office 2 days ago and underwent cystoscopy with bladder stone finding, is scheduled for stone removal later this month. However patient started having significant pain on urination, coursing though his penis, associated with some hematuria, subjective fever and chills. No nausea, vomiting, suprapubic or abdominal pain, shortness of breath. Urology was consulted and he was treated for symptoms as well. He was started on Rocphin emperically. He received 5 days of IV Rocephin. On 06/20/17 patient had cystolitholapaxy done and tolerated without issue. Patient remained stable and sensitivities returned and she was transitioned to Omnicef on discharge. - Time Spent with Patient Total time spent providing and/or coordinating discharge services: - Discharge Medications Prescriptions: OxyCODONE Immed Rel [Roxicodone 5 MG] 1 tab PO Q6HR PRN 3 Days #12 tablet PRN Reason: Severe Pain Home Medications: Aspirin Enteric Coated [Aspirin EC] 81 mg PO DAILY 03/01/15 [History] Meloxicam [Mobic] 7.5 mg PO DAILY 03/01/15 [History] Metoprolol XL (24 HR) Succ [Toprol Xl] 12.5 mg PO DAILY 03/01/15 [History] Propafenone HCl [Propafenone HCl ER] 225 mg PO BID 03/01/15 [History] Cefdinir [Omnicef] 300 mg PO BID 10 Days #20 capsule 06/21/17 [Rx] OxyCODONE Immed Rel [Roxicodone 5 MG] 1 tab PO Q6HR PRN 3 Days #12 tablet [Rx] Allergies/Adverse Reactions: 3 Allergy/AdvReac Type Severity Reaction Status Date / Time Latex, Natural Rubber Allergy Hives Verified 01/17/15 00:20 Date of admission: 06/17/17 21:01 Primary care physician: Checo Chowdary Consults: 06/18/17 08:00 Consult to Nutrition [CONS] Routine Comment: Consulting Provider: NUTRITION Reason for Dietary Consult: MST Score Discharging clinician: Willian Dowling - Constitutional Vitals: Temp Pulse Resp BP Pulse Ox 98.0 F 72 16 125/80 96 06/21/17 11:10 06/21/17 11:10 06/21/17 11:10 06/21/17 11:10 06/21/17 11:10 General appearance: Present: A&O X 3, answers questions appropriately - Head Head exam: Present: atraumatic, normocephalic - Eye Eye exam: Present: PERRL, conjuntiva pink, sclera anicteric Pupils: Present: PERRL - Neck Neck exam general surgery: Present: supple, trachea midline. Absent: lymphadenopathy - Respiratory Respiratory exam: Present: CTAB. Absent: accessory muscle use, rales, rhonchi, wheezes - Cardiovascular Cardiovascular exam: Present: RRR, +S1, +S2. Absent: diastolic murmur, gallop, rubs, systolic murmur - GI/Abdominal GI/Abdominal exam: Present: normal bowel sounds, soft, no peritoneal signs. Absent: distended, tenderness - Extremities Exam Extremities exam: Present: warm, radial pulses palpable and symmetrical. Absent : calf tenderness, cyanotic, pedal edema - Neurological Exam Neurological exam: Present: CN II-XII intact, oriented X3, no focal deficits. Absent: pronater drift, facial droop, speech deficit - Skin Skin exam: Present: dry, intact - Patient Status Disposition: Home, Self-Care Condition: Fair Functional capacity at discharge: independent ambulation Overall status at discharge: patient is back to baseline - Discharge Instructions Follow Up With: Alhaji Chaidez MD [Partnered Physician] - - Diet and Activity Activity: increase activity as tolerated Diet: advance to your usual diet
== END 2017-06-21 12:46 | disposition home or self-care (01) | DRG 694 ==
LOC: 3ANU 18:39 → EMEROO 18:39 → OBSVTOIN 21:01 → SUATTDRO 21:01 → 3ANU 22:13
PROVIDERS: ADMIT Internal Medicine; ATTEND Student in an Organized Health Care Education/Training Program